=== PATIENT | female | born 1995 | race Caucasian/White ===

== ENCOUNTER → 2018-06-08 | Outpatient (CLI) | payer SELFPAY ==
[~2018-06-08] MED LIST: DIPH-911 PO; DIPH0.5D12 IM; FLU60SYR36 IM; LABE200T35 PO
[2018-06-08 14:41] LABS: PLATELET COUNT, AUTOMATED 227 K/uL (150-450)
== END ==
LOC: LAB 13:21
PROVIDERS: ATTEND Student in an Organized Health Care Education/Training Program
DX: Z34.92 Encounter for supervision of normal pregnancy, unspecified, second trimester (principal)
CPT/HCPCS: 36415; 82950; 85025

== ENCOUNTER → 2018-07-05 | Outpatient (CLI) | payer MEDICAID ==
--- NOTE | 2018-07-05 10:40 | RADIOLOGY IMAGING REPORT ---
FACILITY: [facility] [place] PATIENT NAME: Michelle Angulo : 1995 MR: [id number] V: [id number] EXAM DATE: ORDERING PHYSICIAN: CECY WALKER TECHNOLOGIST: [place] [facility] [place] nAgulo : 1995 Visit/Account:[id number] Date of Sevice: 07/05/2018 [facility] OB LIMITED HISTORY: Hypertension, growth check COMPARISON: None. TECHNIQUE: Transabdominal imaging was performed for assessment of the fetus and maternal pelvic s tructures. Transvaginal imaging was not performed. FINDINGS: Intrauterine gestations: One. presentation: Cephalic. heart rate: 152 bpm. Amniotic fluid volume: Normal; EDWIGE 18.74 cm; MVP 5.47 cm. Placenta: Posterior. Uterus: Gravid, otherwise grossly unremarkable where visualized. Maternal adnexa/ovaries: Grossly unremarkable, ovaries not visualized. Cervix: Not evaluated. Gestational Parameters: BPD: 8.39 cm, 77th percentile HC: 31.13 cm, 73rd percentile AC: 28.21 cm, 48th percentile FL: 6.22 cm, 29th percentile Average ultrasound age (AUA): 33 weeks/ three days Estimated age based on LMP: 32 weeks/ four days Estimated weight (EFW): 2015 grams +/- 294 grams Anatomic Survey: A formal anatomic survey was not performed. IMPRESSION: Single viable fetus in cephalic presentation with an estimated gestational age of 33 weeks and three days by measurements. Estimated gestational age by last menstrual period is 32 weeks and four days. Estimated weight is 2015 g Report Dictated By: Beth Reed MD at 07/05/2018 10:32 AM Report E-Signed By: Beth Reed MD at 07/05/2018 10:36 AM WSN:MEAGAN
== END ==
LOC: RAD 08:54
PROVIDERS: ATTEND Student in an Organized Health Care Education/Training Program
DX: O10.92 Unspecified pre-existing hypertension complicating childbirth (principal); Z3A.33 33 weeks gestation of pregnancy

== ENCOUNTER → 2018-07-08 | Outpatient (CLI) | payer MEDICAID ==
[~2018-07-08] VITALS: Ht 165.1 cm; Wt 99.3 kg
[~2018-07-08] MED LIST changes: +ASPI-1471 PO
[2018-07-08 11:11] VITALS: Ht 165.1 cm; Wt 99.3 kg
== END ==
LOC: OB 10:00 → L&D 10:00 → UNDOADMOB 10:00 → UNDODISOB 14:51 → EDSTATUS 07-09 12:43
PROVIDERS: ATTEND Student in an Organized Health Care Education/Training Program
DX: O26.893 Other specified pregnancy related conditions, third trimester (principal); Z3A.32 32 weeks gestation of pregnancy
CPT/HCPCS: 59025; G0378; G0379

== ENCOUNTER → 2018-07-15 | Outpatient (CLI) | payer MEDICAID ==
[2018-07-08 11:11] VITALS: BMI 36.4
[~2018-07-15] MED LIST changes: +NITR-105 PO
== END ==
LOC: LAB 09:54
PROVIDERS: ATTEND Student in an Organized Health Care Education/Training Program
DX: O26.893 Other specified pregnancy related conditions, third trimester (principal)
CPT/HCPCS: 87088

== ENCOUNTER → 2018-07-24 | Outpatient (CLI) | payer MEDICAID ==
[2018-07-08 11:11] VITALS: Wt 100.7 kg
[~2018-07-24] MED LIST changes: +ACET-1966 PO
[2018-07-24 11:40] VITALS: BP 134/97
[2018-07-24 11:40] LABS: PLATELET COUNT, AUTOMATED 241 K/uL (150-450)
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
== END ==
LOC: ER 10:55 → UNDOADMIN 11:03 → L&D 11:03 → OB 11:03 → UNDODISIN 14:00 → EDSTATUS 14:21
PROVIDERS: ATTEND Obstetrics & Gynecology
DX: O26.893 Other specified pregnancy related conditions, third trimester (principal); R03.0 Elevated blood-pressure reading, without diagnosis of hypertension; Z3A.35 35 weeks gestation of pregnancy
CPT/HCPCS: 36415; 82040; 82247; 82310; 82374; 82435; 82565; 82570; 82947; 83615; 84075; 84132; 84155; 84156; 84295; 84450; 84460; 84520; 84550; 85025

== ENCOUNTER → 2018-07-29 | Outpatient (CLI) | payer MEDICAID ==
[2018-07-08 11:11] VITALS: BMI 36.4
[~2018-07-29] MED LIST changes: +ATEN-65 PO; +BET6I IM ONLY; +CITA-155 PO; +CITA-157 PO; +IBUP800T37 PO; +LOR5/325 PO
== END ==
LOC: LAB 09:47
PROVIDERS: ATTEND Student in an Organized Health Care Education/Training Program
DX: O10.913 Unspecified pre-existing hypertension complicating pregnancy, third trimester (principal)
CPT/HCPCS: 36415; 82040; 82247; 82310; 82374; 82435; 82565; 82947; 84075; 84132; 84155; 84295; 84450; 84460; 84520; 85027

== ENCOUNTER → 2018-07-30 | Outpatient (CLI) | payer MEDICAID ==
[~2018-07-30] VITALS: Ht 165.1 cm; Wt 102.1 kg
[~2018-07-30] MED LIST changes: +ACETA/BUTAL/CAFF 325/50/40 TAB PO ONE; +APAP/HYDROCODONE 325/5 TAB PO ONE; -ATEN-65 PO; -CITA-155 PO; -CITA-157 PO; -IBUP800T37 PO; -LOR5/325 PO; +NIFEdipine 10 MG CAP PO ONE
[2018-07-30 11:08] VITALS: BP 111/76
[2018-07-30 11:11] VITALS: Ht 165.1 cm; Wt 102.1 kg
[2018-07-30 12:17] LABS: PLATELET COUNT, AUTOMATED 224 K/uL (150-450)
== END ==
LOC: L&D 10:55 → OB 10:55 → UNDOADMIN 10:55 → UNDODISIN 17:30 → EDSTATUS 08-02 13:13
PROVIDERS: ATTEND Student in an Organized Health Care Education/Training Program
DX: O26.893 Other specified pregnancy related conditions, third trimester (principal); R03.0 Elevated blood-pressure reading, without diagnosis of hypertension; R51 Headache; Z3A.36 36 weeks gestation of pregnancy
CPT/HCPCS: 36415; 82040; 82247; 82310; 82374; 82435; 82565; 82570; 82947; 84075; 84132; 84155; 84156; 84295; 84450; 84460; 84520; 85025

== ENCOUNTER → 2018-08-02 | Outpatient (CLI) | payer MEDICAID ==
[2018-07-30 11:11] VITALS: BMI 37.4
[~2018-08-02] MED LIST changes: -ACETA/BUTAL/CAFF 325/50/40 TAB PO ONE; -APAP/HYDROCODONE 325/5 TAB PO ONE; -NIFEdipine 10 MG CAP PO ONE
--- NOTE | 2018-08-02 17:15 | RADIOLOGY IMAGING REPORT ---
FACILITY: [facility] PATIENT NAME: Michelle Angulo : 1995 MR: [id number] V: [id number] EXAM DATE: ORDERING PHYSICIAN: CECY WALKER TECHNOLOGIST: [place] [facility] [place]: Michelle Angulo : 1995 Visit/Account:[id number] Date of Sevice: 08/02/2018 [facility] [place] LIIMITED HISTORY: Chronic hypertension affecting , evaluate for growth COMPARISON: July 05, 2018 TECHNIQUE: Transabdominal imaging was performed for assessment of the fetus and maternal pelvic s tructures. Transvaginal imaging was not performed. FINDINGS: Intrauterine gestations: One. presentation: Cephalic. heart rate: 163 bpm. Amniotic fluid volume: Normal; EDWIGE 18.23 cm; MVP 4.97 cm. Placenta: Posterior. Uterus: Gravid, otherwise grossly unremarkable where visualized. Maternal adnexa/ovaries: Not evaluated. Cervix: Not evaluated. Gestational Parameters: BPD: 9.14 cm, 76th percentile HC: 34.33 cm, 89th percentile AC: 31.79 cm, 37th percentile FL: 7.03 cm, 34th percentile Average ultrasound age (AUA): 37 weeks/ two days Estimated age based on LMP: 36 weeks/ four days Estimated weight (EFW): 2918 grams +/- 426 grams, 48th percentile Anatomic Survey: Anatomic survey was not performed IMPRESSION: Single viable fetus in cephalic presentation with an estimated gestational age by measurements of 37 weeks and two days. Estimated gestational age by LMP is 36 weeks and four days. Estimated weight 2918 g, 48th percentile Report Dictated By: Beth Reed MD at 08/02/2018 5:00 PM Report E-Signed By: Beth Reed MD at 08/02/2018 5:11 PM RAMESHN:MEAGAN
== END ==
LOC: RAD 09:12
PROVIDERS: ATTEND Student in an Organized Health Care Education/Training Program
DX: O10.919 Unspecified pre-existing hypertension complicating pregnancy, unspecified trimester (principal)

== ENCOUNTER 2018-08-10 17:37 | Inpatient (IN) | payer MEDICAID ==
[~2018-08-10] VITALS: Ht 165.1 cm; Wt 103.9 kg
[2018-08-10] MEDS ORDERED: FAMOTIDINE(*) 20MG/50ML PREMIX 50 ML IVPB PRN (17:46)
[2018-08-10] MEDS: DLR(*) 1000 ML BAG 1,000 ML IV SCH (17:46)
[2018-08-10 17:50] VITALS: BP 127/87; Ht 165.1 cm; Wt 103.9 kg
[2018-08-10] MEDS ORDERED: LIDOCAINE 1% LOCAL 300 MG/30ML INJ PRN (17:50)
[2018-08-10] MEDS ORDERED: FLUSH 10 ML SYR IVP PRN (17:50)
[2018-08-10] MEDS ORDERED: DINOPROSTONE 10 MG INSERT PV ONE (17:50)
[2018-08-10] MEDS ORDERED: LIDOCAINE/SOD BICARB 8.4% SYR SC PRN (17:50)
[2018-08-10 18:10] LABS: PLATELET COUNT, AUTOMATED 259 K/uL (150-450)
[2018-08-10] MEDS ORDERED: ONDANSETRON 4 MG/2 ML VIAL IVP PRN (18:40)
[2018-08-10] MEDS ORDERED: ACETAMINOPHEN 325 MG TAB PO PRN (18:40)
[2018-08-10] MEDS ORDERED: ceFAZolin(*) 2GM/D5W 50ML 50 ML IVPB PRN (18:48)
[2018-08-10] MEDS ORDERED: OXYTOCIN 30 UNIT/D5LR 500 ML 500 ML ONE (19:20)
[2018-08-10] MEDS: FAMOTIDINE 20 MG TAB PO PRN (19:50)
[2018-08-10] MEDS: LR(*) 1000 ML BAG 1,000 ML IV PRN (19:50)
[2018-08-10] MEDS: DOXYLAMINE SUCCINATE 25 MG TAB PO SCH (19:51)
[2018-08-10] MEDS ORDERED: OXYTOCIN 30 UNIT/D5LR 500 ML 500 ML IV PRN (19:54)
[2018-08-10] MEDS: LABETALOL HCL 100 MG TAB PO SCH (20:47)
[2018-08-10] MEDS: ZOLPIDEM TARTRATE 5 MG TAB PO PRN ×2 (21:03→23:28)
[2018-08-11] MEDS: DLR(*) 1000 ML BAG 1,000 ML IV SCH (01:46)
[2018-08-11] MEDS ORDERED: PENICILLIN G 5 MILLUN/100 ML 100 ML ONE ×2 (01:56→02:06)
[2018-08-11] MEDS ORDERED: PENICILLIN G 5 MILLUN/100 ML 100 ML IVPB ONE ×2 (02:00)
[2018-08-11] MEDS: fentaNYL CITR 100 MCG/2 ML AMP IVP PRN ×3 (02:02→22:37)
[2018-08-11] MEDS ORDERED: BUPIVACAINE 0.5% INJ 30ML VIAL EPI PRN (02:25)
[2018-08-11] MEDS ORDERED: FENTANYL/ROPIVACAINE 100 ML BAG EPI PRN (02:25)
[2018-08-11] MEDS ORDERED: fentaNYL CITR 100 MCG/2 ML AMP IT PRN (02:25)
[2018-08-11] MEDS ORDERED: BUPIVACAINE 0.25% MPF INJ EPI PRN (02:25)
[2018-08-11] MEDS ORDERED: LIDO/EPI 2% MPF 1:200,000 20ML EPI PRN (02:25)
[2018-08-11] MEDS ORDERED: EPIDURAL KEYS XX PRN (02:25)
[2018-08-11] MEDS ORDERED: LIDOCAINE/PF 2% 200MG/10ML AMP 200 MG/10 ML AMPUL EPI PRN (02:25)
[2018-08-11] MEDS ORDERED: DLR(*) 1000 ML BAG 1,000 ML IV PRN (03:30)
[2018-08-11] MEDS ORDERED: PENICILLIN G 2.5 MILLUN/100 ML 100 ML IVPB SCH ×3 (04:00→20:00)
[2018-08-11] MEDS: LR(*) 1000 ML BAG 1,000 ML IV PRN ×2 (05:28→12:29)
--- NOTE | 2018-08-11 06:02 | Anesthesia OB Pre-Anes Eval ---
History of Present Illness Anesthesia Start Date: Aug 11, 2018 Anesthesia Start Time: 04:50 EDC: Aug 26, 2018 : 1 Para: 0 Vital Signs: Vital Signs Date Time Temp Pulse Resp B/P (MAP) Pulse Ox O2 Delivery O2 Flow Rate FiO2 08/10/18 17:50 96.6 106 18 127/87 (100) Room Air Pain Ratin Heart Tones: WNL Result Diagram: 08/10/18 1759 08/10/18 0000 Height (Inches): 65.00 Weight (Pounds): 229 BMI (kg/m2): 37 Past Medical History Medical History: hypertension (Chronic, on medication before ) Attended Childbirth Classes?: No Hx Anesthesia Reactions: No Hx Family Anesthesia Reaction: No Current Medications: pain medication (Fentenyl 200 mg IV) Home Meds Active Scripts Labetalol Hcl (LABETALOL HCL) 200 Mg Tablet, 200 MG PO BID, #60 TAB 2 Refills Prov:CECY WALKER DO 06/08/18 Reported Medications Acetaminophen (TYLENOL) 325 Mg Tablet, 650 MG PO Q4-6H PRN for HEADACHE, TAB 07/24/18 Diphenhydramine Hcl (UNISOM) Unknown Strength Capsule, PO QHS, CAPSULE 06/08/18 Discontinued Reported Medications Aspirin (ASPIR 81) 81 Mg Tablet.dr, 81 MG PO QDAY, TAB 07/08/18 Allergies: Coded Allergies: cephalexin (Verified Allergy, Unknown, 06/08/18) Anesthesia OB ROS Neurological: No migraines/headaches, No seizures, No neuropathy ENT: Denies Tooth caps, Denies Loose teeth, Denies Chipped teeth, Denies Dentures, Denies Bridges, Denies Retainers, Denies Veneers, Denies Implants, Denies Tongue ring Pulmonary: No asthma, No smoker (pks/day/yrs) Airway Class: ll Cardiovascular ROS: No edema, No arrhythmia; other (History of chronic hypertension) GI ROS: clear liquids Last Solids Date: Aug 10, 2018 Last Solids Time: 17:00 ROS: No Herpes, No STD(s), No Liver Disease, No Renal Disease Endocrine ROS: No diabetes, No gestational diabetes, No thyroid disorder Musculoskeletal ROS: No low back pain, No low back injury, No scoliosis ASA Classification: 2 Assessment and Plan Anesthesia Plan: CSE Assessment Past Medical, Surgical, Family and Obstetric Histories reviewed. Please see [facility] chart. Epidural anesthesia risks, complications and benefits explained to patient's satisfaction for labor and vaginal delivery and/or section. General anesthesia risks and benefits explained to patient's satisfaction. Questions invited, none asked. REBEKAH STEVENSON CRNA Aug 11, 2018 06:02
--- NOTE | 2018-08-11 06:03 | Procedure Note ---
Anesthetic Placement Note Anesthesia Plan: CSE Permit for Anesthesia Signed: Yes Anesthesia Technique: Patient Sitting Anesthesia Prep: Chlorhexidine Interspace: L 3-4 Local Anesthetic: 1% Lidocaine, 25 Gauge Needle Amount Local - cc's: 3 Anesthesia Needle: 17g Touhy/Schliff Anesthesia Attempts: 1 Loss of Resistance: Air Depth of ADY (cm): 5 Epidural Needle Placement: No CSF, No Blood, No Parasthesia Intrathecal Needle: 27 Gauge Pencan Cerebral Spinal Fluid: Yes, Clear Catheter Insertion (cm): 8 Catheter Type: Jacome - Spring Wound Epidural Dressing: Tegaderm, Tape, Adhesive [place] Anesthesia Tray: Lot Number ([id number]), Expiration Date (2019-06-25), Reference Number ([id number]) Anesthesia Medications: Intrathecal Dose: mcg Fentanyl (15), mg Marcaine MPF (1.75), Time (0515) Epidural Test Dose: 1.5 Lido/Epi (1:200,000), Dose - mL (3), Time (0537), Negative Epidural Loading Dose: 0.2% Ropivicaine, With Fentanyl 2mcg/ml, Dose - ml (5), Time (0537) Epidural Infusion: 0.2% Ropivicaine, With Fentanyl 2mcg/ml, Start Time: (0537) Epidural Pump Setting: Bolus Dose - mL (5), Lockout - Minutes (20), Maintenance Rate - mL/hr (6), Maximum per Hour - mL (21) Complications: None Comment: Pt. tolerated procedure very well. Difficult to assess when pt. is having contractions. Mild itching noted. REBEKAH STEVENSON CRNA Aug 11, 2018 06:03
--- NOTE | 2018-08-11 06:11 | Anesthesia Progress Note ---
Progress/Maintenance Anesthesia Note Date: Aug 11, 2018 Anesthesia Note Time: 06:00 Pain Intensity: 0 Pump: On Pump Rate (ML/HR): 6 Sensory Level: T-12 Motor Level: Bending Knees-Bilateral Position: Right, Tilt Assessment and Plan Assessment Pt. remains very comfortable, does not feel contractions. Encouraged to sleep. REBEKAH STEVENSON CRNA Aug 11, 2018 06:11
[2018-08-11] MEDS ORDERED: OXYTOCIN 30 UNIT/D5LR 500 ML 500 ML IV PRN ×2 (06:30→12:53)
[2018-08-11] MEDS: DOXYLAMINE SUCCINATE 25 MG TAB PO SCH ×2 (08:06→21:30)
[2018-08-11] MEDS: LABETALOL HCL 100 MG TAB PO SCH (08:38)
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
--- NOTE | 2018-08-11 09:50 | Anesthesia Progress Note ---
Progress/Maintenance Anesthesia Note Date: Aug 11, 2018 Anesthesia Note Time: 09:45 Pain Intensity: 0 Pump: On Pump Rate (ML/HR): 6 Sensory Level: T-12 Motor Level: Bending Knees-Bilateral Dilatation: 4 Position: Right, Tilt Assessment and Plan Assessment Pt. continues to be comfortable, but has now noticed a few contractions. Moving her legs well and able to turn herself in bed. REBEKAH STEVENSON CRNA Aug 11, 2018 09:50
[2018-08-11] MEDS: PENICILLIN G 2.5 MILLUN/100 ML 100 ML IVPB SCH ×3 (10:01→18:10)
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
[2018-08-11] MEDS: FAMOTIDINE 20 MG TAB PO PRN (10:47)
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
--- NOTE | 2018-08-11 14:45 | Anesthesia Progress Note ---
Progress/Maintenance Anesthesia Note Date: Aug 11, 2018 Anesthesia Note Time: 12:30 Pain Intensity: 0 Pump: On Pump Rate (ML/HR): 6 Sensory Level: T-12 Motor Level: Bending Knees-Bilateral Dilatation: 5 Position: Right, Tilt Assessment and Plan Assessment Pt. remains comfortable, no further medication has been given. REBEKAH STEVENSON CRNA Aug 11, 2018 14:45
--- NOTE | 2018-08-11 14:47 | Anesthesia Progress Note ---
Progress/Maintenance Anesthesia Note Date: Aug 11, 2018 Anesthesia Note Time: 14:45 Pain Intensity: 0 Pump: On Pump Rate (ML/HR): 6 Sensory Level: T-12 Motor Level: Bending Knees-Bilateral Dilatation: 8 Position: Right, Tilt Assessment and Plan Assessment Sensory of rt side much lower, turned onto right side after vag exam. Pt. states she has been sleeping soundly and does not notice contractions. Able to move herself up in med easily. REBEKAH STEVENSON CRNA Aug 11, 2018 14:47
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
--- NOTE | 2018-08-11 15:25 | Anesthesia Progress Note ---
Progress/Maintenance Anesthesia Note Date: Aug 11, 2018 Anesthesia Note Time: 15:20 Pain Intensity: 7 Pump: On Pump Rate (ML/HR): 6 Sensory Level: T-12 Motor Level: Bending Knees-Bilateral Dilatation: 9 Position: Right, Tilt Drug Bolus: 0.2% Ropivicaine, Fentanyl 2mcg/ml, Other (Fentenyl 85 mcgs) Assessment and Plan Assessment Feeling more contractions and pressure. Bolus with pump and Fentenyl 85 mcgs manually. REBEKAH STEVENSON CRNA Aug 11, 2018 15:25
--- NOTE | 2018-08-11 15:48 | Anesthesia Progress Note ---
Progress/Maintenance Anesthesia Note Date: Aug 11, 2018 Anesthesia Note Time: 15:45 Pain Intensity: 7 Pump: On Pump Rate (ML/HR): 6 Sensory Level: T-12 Motor Level: Bending Knees-Bilateral Dilatation: 9 Drug Bolus: 0.5% Marcaine (5ml) Assessment and Plan Assessment Pt. feels her comfort level has not improved. Manual bolus with 0.5% Marcaine plain. REBEKAH STEVENSON CRNA Aug 11, 2018 15:48
[2018-08-11] MEDS ORDERED: HYDROCORTISONE 2.5% CR 30GM TB PR PRN (19:05)
[2018-08-11] MEDS ORDERED: BENZOCAINE 20% 60 ML BTL TP PRN (19:05)
[2018-08-11] MEDS ORDERED: LANOLIN OINT 7 GM TUBE TP PRN (19:05)
[2018-08-11] MEDS ORDERED: ACETAMINOPHEN 325 MG TAB PO PRN (19:05)
[2018-08-11] MEDS ORDERED: MAGNESIUM HYDROXIDE* 30ML UDCP PO PRN (19:05)
[2018-08-11] MEDS ORDERED: GLYCERIN/WITCH HAZEL LEAF 1 PK TP PRN (19:05)
--- NOTE | 2018-08-11 19:12 | Anesthesia Progress Note ---
Progress/Maintenance Anesthesia Note Date: Aug 11, 2018 Anesthesia Note Time: 19:00 Pain Intensity: 0 Pump: Off Sensory Level: T-12 Motor Level: Bending Knees-Bilateral Dilatation: 10 Position: Semi-Fowlers Drug Bolus: 0.5% Marcaine (4 ml) Assessment and Plan Assessment Manual bolus given as started. Pt. was able to push well and had excellent tolerance of deliver and repair work. Patient instructed the first ambulation is to be with help of nursing staff. Instructed to preform deep knee bends at bedside before walking. Empty syringe attached to epidural catheter and RN agrees to remove with ambulation. Anesthesia Stop Day: Aug 11, 2018 Anesthesia Stop Time: 19:00 REBEKAH STEVENSON CRNA Aug 11, 2018 19:12
--- NOTE | 2018-08-11 19:15 | OB Delivery Note ---
Delivery Note Vaginal Delivery Type: Spont. Vaginal Delivery Delivery Date: Aug 11, 2018 Delivery Time: 18:29 Estimated Gestational Age(wks): 37.6 Length of Labor Stage I (hrs): 8 Length of Labor Stage II (hrs): 1.5 Labor Stage III (minutes): 5 Delivery Anesthesia: Epidural Infant Sex: Female Weight (gms): 2910 (6#10oz) Callahan Apgars: 1 Minute (8), 5 Minute (9) Repair Needed: Episiotomy-Midline, Other (Right Side wall) Estimated Blood Loss: 500 Delivery Complications: Hemorrhage (due to laceration), Laceration CECY WALKER DO Aug 11, 2018 19:15
[2018-08-11] MEDS ORDERED: MISOPROSTOL 200 MCG TAB ONE (19:32)
[2018-08-11] MEDS ORDERED: METHYLERGONOVINE MAL 0.2MG/ML ONE (20:21)
[2018-08-11] MEDS: APAP/HYDROCODONE 325/5 TAB PO PRN (20:22)
[2018-08-11] MEDS: DOCUSATE CALCIUM 240 MG CAP PO SCH (21:00)
[2018-08-11] MEDS ORDERED: PROMETHAZINE 25 MG/ML 1 ML AMP IVP PRN (21:45)
--- NOTE | 2018-08-11 22:11 | DELIVERY NOTE ---
DELIVERY DATE: August 11, 2018 SURGEON: Lars Harman DO ANESTHESIA: Epidural. PREOPERATIVE DIAGNOSES 1. A 23-year-old, 1, para zero, at 37-6/7 weeks' gestation. 2. Moderately well-controlled chronic hypertension on labetalol. 3. Induction of labor. POSTOPERATIVE DIAGNOSES 1. A 23-year-old, 1, para zero, at 37-6/7 weeks' gestation. 2. Moderately well-controlled chronic hypertension on labetalol. 3. Induction of labor. 4. Delivered. PROCEDURES 1. Spontaneous vaginal delivery. 2. Repair of right sidewall laceration and a second-degree midline episiotomy. FINDINGS Live-born female at 1829 with Apgars of 8 and 9, weighing 2910 g, 6 pounds 7 ounces, three-vessel cord, intact placenta over a second-degree midline episiotomy with right sidewall laceration. PATHOLOGY None. ESTIMATED BLOOD LOSS 700 mL secondary to sidewall laceration. COMPLICATIONS Extensive right sidewall laceration and left compound arm presentation. CONDITION Patients stable times two. Mother and to remain in the LDRP. COUNTS Correct for all needles, laps, sponges, and instruments. INDICATIONS AND CONSENT/LABOR SUMMARY This 23-year-old 1, para zero, at 37-6/7 weeks' gestation presented for induction of labor secondary to chronic hypertension on blood pressure medications. Patient was initially 1 cm dilated. She received Cervidil overnight. She progressed with Cervidil to 3 to 4 cm. She did request an epidural for pain control. Continued to progress slowly. She was started on oxytocin and did undergo artificial rupture of amniotic membranes with clear amniotic fluid. Patient continued on oxytocin, making slow but adequate progress, and eventually got to complete. After approximately one and a half to two hours of pushing, the delivery team was called and assembled. DELIVERY SUMMARY Patient was placed in the dorsal lithotomy position, prepped and draped in the usual sterile manner. Upon maternal pushing, the 's head delivered in a controlled manner, followed by the anterior shoulder with gentle downward motion and the posterior shoulder with gentle upward motion. The remainder of the 's body delivered spontaneously. The mouth and nose were bulb suctioned. A vigorous female infant was then placed on maternal abdomen. After approximately two minutes post delivery, the cord was clamped times two and cut. At this point, cord blood gases were obtained. The placenta delivered spontaneously with gentle cord traction. Once the placenta delivered, oxytocin was infused to help with uterine tone. The uterus was massaged and deemed firm. Upon inspection of the perineum, vagina, cervix, and labia, it was noted in addition to the episiotomy that was cut there was an extensive right sidewall laceration. Because of how posterior the extension was, a laparotomy sponge was placed in the vagina to push the cervix further distal to expose the apex of the laceration. The apex was visualized. A 3-0 Vicryl was then placed just distal to the apex. The 3-0 Vicryl was then used to close the sidewall laceration in a running locked manner until the episiotomy. Once at the episiotomy, the episiotomy was closed in the usual manner with a 3-0 Vicryl. With the laceration repaired, it was noted to be hemostatic. The patient had uterus massaged and deemed firm. At this point, the patient was cleaned. The labor bed was reassembled, and the mother and were allowed to continue to tristan. CORA
[2018-08-11 22:32] VITALS: BP 142/87
[2018-08-12] MEDS: fentaNYL CITR 100 MCG/2 ML AMP IVP PRN (00:03)
[2018-08-12] MEDS ORDERED: LR(*) 1000 ML BAG 2,000 ML ONE (01:30)
[2018-08-12 03:40] VITALS: BP 129/81
[2018-08-12] MEDS: APAP/HYDROCODONE 325/5 TAB PO PRN ×3 (04:22→21:34)
[2018-08-12] MEDS: IBUPROFEN 800 MG TAB PO SCH ×3 (06:29→23:27)
--- NOTE | 2018-08-12 06:58 | Anesthesia Post Eval Note ---
Anesthesia Post Eval Note Vital Signs Date Time Temp Pulse Resp B/P (MAP) Pulse Ox O2 Delivery O2 Flow Rate FiO2 08/12/18 03:40 97.8 91 129/81 (97) 91 Room Air 08/10/18 17:50 18 Pt able to participate in Eval: Yes Cardiovascular Status: Satisfactory Respiratory Status: Satisfactory Pain Managment: Satisfactory PO Nausea/Vomiting: Satisfactory Temperature Management: Satisfactory Mental Status: Satisfactory, Alert, Oriented X3 Post-Op Hydration Status: Satisfactory, Tolerating PO Well, Voiding w/o Difficulty Anesthesia Type: CSE Anesthesia Tolerance: Tolerated procedure well without apparent anesthetic complications. LP site clear, no redness or edema. Denies headache or any residual paresthesia. Vital Signs Stable, Patient comfortable and condition stable. REBEKAH STEVENSON CRNA Aug 12, 2018 06:58
[2018-08-12 08:00] VITALS: BP 134/78
[2018-08-12] MEDS: DOXYLAMINE SUCCINATE 25 MG TAB PO SCH (08:00)
[2018-08-12] MEDS: DOCUSATE CALCIUM 240 MG CAP PO SCH ×2 (10:00→21:34)
--- NOTE | 2018-08-12 12:57 | OB/GYN Progress Note ---
OB Subjective Progress Notes Subjective Doing good PPD#2. Some tenderness where belly has been pushed on for fundal massage. Turner cath still being used. No headaches or visual changes. Lochia appropriate GI: NEG Nausea, NEG Vomiting, NEG Flatus, NEG Bowel Movement Pain: Mild, Comfortable, Tolerating PO Pain Meds Neurological: No Headache, No Other Eyes: No Visual Disturbances OB Objective Physical Exam Vital Signs Date Time Temp Pulse Resp B/P (MAP) Pulse Ox O2 Delivery O2 Flow Rate FiO2 08/12/18 08:00 98.4 94 18 134/78 (96) 94 Room Air Intake and Output 08/12/18 07:00 Intake Total 2650 ml Output Total 1875 ml Balance 775 ml IV Total 2650 ml Output Urine Total 1875 ml General Appearance: Alert/Awake/No Acute Distress Neurological: No Gross deficits Eyes: Normal Extraocular Movement & Vison ENT: Normal Cardiovascular: Normal Rhythm & Peripheral Pulses Respiratory: No Respiratory Distress, Clear to Auscultation Abdomen: Soft, Non-Tender, Non-Distended, Fundus Firm Extremities: No Cyanosis,Clubbing or Edema Integumentary: Skin Intact without Lesions or Rash Psychological: Appropriate Mood & Affect Result Diagram: 08/12/18 0555 08/10/18 0000 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 Pt desires to start back on prepregnancy medications. Will start her on Atenolol 50 mg PO daily. D/C turner. (3) Encounter for induction of labor Status: Acute CECY WALKER DO Aug 12, 2018 12:57
[2018-08-12 13:15] VITALS: BP 142/91
[2018-08-12] MEDS ORDERED: ATENOLOL 25 MG TAB PO SCH (14:00)
[2018-08-12 15:20] VITALS: BP 124/78
[2018-08-12] MEDS ORDERED: DOXYLAMINE SUCCINATE 25 MG TAB PO PRN (17:00)
[2018-08-12] MEDS ORDERED: INFLUENZA VIRUS VAC 0.5ML SYR IM ONLY ONE (19:05)
[2018-08-12] MEDS ORDERED: DIPHTH/TETANUS/ACEL. PERTUSSIS IM ONLY ONE (19:05)
[2018-08-12] MEDS ORDERED: MEASLES,MUMP,RUBELLA VAC 0.5ML SUBQ ONE (19:05)
[2018-08-12] MEDS ORDERED: IBUPROFEN 800 MG TAB PO SCH (20:00)
[2018-08-12 20:10] VITALS: BP 145/95
[2018-08-12 23:27] VITALS: BP 128/81
[2018-08-13] MEDS: APAP/HYDROCODONE 325/5 TAB PO PRN ×3 (01:03→12:30)
[2018-08-13 03:25] VITALS: BP 145/79
--- NOTE | 2018-08-13 08:06 | OB/GYN Progress Note ---
OB Subjective Progress Notes Subjective Doing good PPD # 2. Reports voiding and having a BM with out any difficulty. Pain controlled on po pain medications. Tolerating regular diet. Ambulatory. Lochia appropriate. GI: NEG Nausea, NEG Vomiting, NEG Flatus, NEG Bowel Movement : Voiding Well, Vaginal Bleeding, Moderate Pain: Mild, Comfortable, Tolerating PO Pain Meds Neurological: No Headache, No Other Eyes: No Visual Disturbances OB Objective Physical Exam Vital Signs Date Time Temp Pulse Resp B/P (MAP) Pulse Ox O2 Delivery O2 Flow Rate FiO2 08/13/18 03:25 97.3 93 18 145/79 (101) 94 Room Air Intake and Output 08/13/18 06:59 Intake Total 1062 ml Output Total 1425 ml Balance -363 ml Intake Oral 562 ml IV Total 500 ml Output Urine Total 1425 ml # Voids 1 General Appearance: Alert/Awake/No Acute Distress Neurological: No Gross deficits Eyes: Normal Extraocular Movement & Vison ENT: Normal Cardiovascular: Normal Rhythm & Peripheral Pulses Respiratory: No Respiratory Distress, Clear to Auscultation Abdomen: Soft, Non-Tender, Non-Distended, Fundus Firm Extremities: No Cyanosis,Clubbing or Edema Integumentary: Skin Intact without Lesions or Rash Psychological: Appropriate Mood & Affect Result Diagram: 08/12/18 0555 08/10/18 0000 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 Continue atenolol and po pain medications. (3) Encounter for induction of labor Status: Acute CECY WALKER DO Aug 13, 2018 08:06
[2018-08-13] MEDS ORDERED: ATEN-65 PO (08:09)
[2018-08-13] MEDS ORDERED: IBUP800T37 PO (08:09)
[2018-08-13] MEDS ORDERED: LOR5/325 PO (08:09)
--- NOTE | 2018-08-13 08:16 | OB/GYN Discharge Summary ---
Discharge Summary Reason for Hosp/Final Diag: (1) 37 weeks gestation of Status: Acute (2) Chronic hypertension affecting Status: Chronic Hospital Course & Plan: Pt presented for a scheduled IOL. IOL proceeded with out any difficulty. See delivery note for details of procedure. Pt did have Uterine atony post and required extra oxytocin, Cytotec, Methergine. Silverman catheter was used to ensure adequate urine output. Pt remained in the hospital for 2 days post . Was transitioned to Atenolol for BP control. Pt was meeting post goals and desired to be discharged home. (3) Encounter for induction of labor Status: Acute Lates Vital Signs Vital Signs Date Time Temp Pulse Resp B/P (MAP) Pulse Ox O2 Delivery O2 Flow Rate FiO2 08/13/18 03:25 97.3 93 18 145/79 (101) 94 Room Air Weight (Pounds): 229 Result Diagram: 08/12/18 0555 08/10/18 0000 Condition: Improved Discharge: Home Home Meds Active Scripts Hydrocodone Bit/Acetaminophen (HYDROCODON-ACETAMINOPHEN 5-325) 1 Each Tablet, 1- 2 EACH PO Q4H PRN for PAIN, #20 TAB 0 Refills Prov:CECY WALKER DO 08/13/18 Labetalol Hcl (LABETALOL HCL) 200 Mg Tablet, 200 MG PO BID, #60 TAB 2 Refills Prov:CECY WALKER DO 06/08/18 Reported Medications Acetaminophen (TYLENOL) 325 Mg Tablet, 650 MG PO Q4-6H PRN for HEADACHE, TAB 07/24/18 Diphenhydramine Hcl (UNISOM) Unknown Strength Capsule, PO QHS, CAPSULE 06/08/18 Discontinued Reported Medications Aspirin (ASPIR 81) 81 Mg Tablet., 81 MG PO QDAY, TAB 07/08/18 Follow up with: [facility] [phone], Dr. Walker [phone] Follow up in: 6 wks PP or PO, 2 wks PO Discharge Diet: As Tolerates, Resume Prior Admit Diet Discharge Activity: Pelvic Rest CECY WALKER DO Aug 13, 2018 08:16
[2018-08-13 08:30] VITALS: BP_SYST 141; BP_SYST 153; BP_DIAS 100; BP_DIAS 107
[2018-08-13] MEDS ORDERED: ATENOLOL 25 MG TAB PO SCH (08:35)
[2018-08-13] MEDS: IBUPROFEN 800 MG TAB PO SCH ×2 (08:39→15:00)
[2018-08-13] MEDS: DOCUSATE CALCIUM 240 MG CAP PO SCH (08:39)
[2018-08-14] MEDS ORDERED: ATENOLOL 25 MG TAB PO SCH (09:00)
== END 2018-08-13 17:50 | disposition home or self-care (01) | DRG 807 ==
LOC: OB 17:37
PROVIDERS: ADMIT Student in an Organized Health Care Education/Training Program; ATTEND Student in an Organized Health Care Education/Training Program
PROC: 10E0XZZ Delivery of Products of Conception, External Approach (ICD-10-PCS; principal; 2018-08-10)
PROC: 10907ZC Drainage of Amniotic Fluid, Therapeutic from Products of Conception, Via Natural or Artificial Opening (ICD-10-PCS; 2018-08-10)
PROC: 0W8NXZZ Division of Female Perineum, External Approach (ICD-10-PCS; 2018-08-10)
PROC: 3E0P7VZ Introduction of Hormone into Female Reproductive, Via Natural or Artificial Opening (ICD-10-PCS; 2018-08-10)
PROC: 3E033VJ Introduction of Other Hormone into Peripheral Vein, Percutaneous Approach (ICD-10-PCS; 2018-08-10)
DX: O10.92 Unspecified pre-existing hypertension complicating childbirth (principal); Z37.0 Single live birth; O70.1 Second degree perineal laceration during delivery; O67.8 Other intrapartum hemorrhage; O32.6XX0 Maternal care for compound presentation, not applicable or unspecified; Z91.410 Personal history of adult physical and sexual abuse; Z3A.37 37 weeks gestation of pregnancy
CPT/HCPCS: 36415; 82040; 82247; 82310; 82374; 82435; 82565; 82947; 84075; 84132; 84155; 84295; 84450; 84460; 84520; 85025; 85027; 86703; 86850; 86900; 86901; J2210; J2540; J2550; J2590; J3010; J7120

== ENCOUNTER 2018-09-15 15:32 | Emergency (ER) | payer MEDICAID ==
[2018-08-10 17:50] VITALS: Wt 103.9 kg
[~2018-09-15 15:32] MED LIST changes: +ATEN-65 PO; +CITA-155 PO; +CITA-157 PO; +IBUP800T37 PO; +LOR5/325 PO
[2018-09-15 15:36] VITALS: BP 160/103
--- NOTE | 2018-09-15 15:52 | ER Report ---
History and Physical Time Seen By MD: 15:45 Hx. of Stated Complaint: SI, HI, DEPRESSION HPI/ROS CHIEF COMPLAINT: Suicidal homicidal thoughts HISTORY OF PRESENT ILLNESS: 23-year-old female history of psychiatric disorders comes emergency Department today via the clinic she has a 30 day old child who she states is she is suicidal ideation for herself and homicidal ideations on the child and says she wants to kill her child. . Child is currently in care and custody of one of her primary school teacher librarian's CPS will be contacted at this point as well. Patient states she's had suicidal thoughts in the past. Has had thoughts about killing herself but now wants to kill her child. Patient admits to these thoughts on a regular basis. Patient is concerned about her own safety obviously and also safety of her child. REVIEW OF SYSTEMS: Respiratory: No cough, no dyspnea. Cardiovascular: No chest pain, no palpitations. Gastrointestinal: No vomiting, no abdominal pain. Musculoskeletal: No back pain. Remainder of the 14 system rev: Yes Allergies: Coded Allergies: cephalexin (Verified Allergy, Unknown, 06/08/18) Home Meds Active Scripts Atenolol (ATENOLOL) 25 Mg Tablet, 25 MG PO QDAY, #30 TAB 12 Refills Prov:CECY WALKER DO 08/13/18 Reported Medications Citalopram Hydrobromide (CELEXA) 40 Mg Tablet, 40 MG PO QDAY 09/15/18 Discontinued Reported Medications Citalopram Hydrobromide (CELEXA) 10 Mg Tablet, 20 MG PO QDAY, #10 TAB 08/26/18 Discontinued Scripts Citalopram Hydrobromide (CELEXA) 40 Mg Tablet, 40 MG PO QDAY for 30 Days, #30 TAB 3 Refills Prov:CECY WALKER DO 09/06/18 Reviewed Nurses Notes: Yes Old Medical Records Reviewed: Yes Hx Smoking: No Smoking Status: Never Smoker Exposure to Second Hand Smoke?: No Hx Substance Use Disorder: No Hx Alcohol Use: No Constitutional Physical Exam General Appearance: [The patient is alert, has no immediate need for airway protection and no current signs of toxicity.] [ ] Eyes: Pupils equal and round no injection. Respiratory: Chest is non tender, lungs are clear to auscultation. Cardiac: regular rate and rhythm [ ] Gastrointestinal: Abdomen is soft and non tender, no masses, bowel sounds normal. Musculoskeletal: Neck: Neck is supple and non tender. Extremities have full range of motion and are non tender. Skin: No rashes or lesions. Behavioral examination patient with suicidal homicidal ideation with plan intent for herself and for her child DIFFERENTIAL DIAGNOSIS: After history and physical exam differential diagnosis was considered for suicidal thoughts and ideation with plan homicidal ideation of her child Medical Decision Making Data Points Laboratory Hematology Test 09/15/18 15:53 Red Blood Count 4.42 M/uL (4.17-5.56) Mean Corpuscular Volume 88.0 fL (80.0-96.0) Mean Corpuscular Hemoglobin 28.6 pg (26.0-33.0) Mean Corpuscular Hemoglobin Concent 32.5 g/dL (32.0-36.0) Red Cell Distribution Width 14.3 % (11.5-14.5) Mean Platelet Volume 8.4 fL (7.2-11.1) Neutrophils (%) (Auto) 66.7 % (39.4-72.5) Lymphocytes (%) (Auto) 25.1 % (17.6-49.6) Monocytes (%) (Auto) 7.1 % (4.1-12.4) Eosinophils (%) (Auto) 0.6 % (0.4-6.7) Basophils (%) (Auto) 0.5 % (0.3-1.4) Nucleated RBC Relative Count (auto) 0.0 /100WBC Neutrophils # (Auto) 5.6 K/uL (2.0-7.4) Lymphocytes # (Auto) 2.1 K/uL (1.3-3.6) Monocytes # (Auto) 0.6 K/uL (0.3-1.0) Eosinophils # (Auto) 0.1 K/uL (0.0-0.5) Basophils # (Auto) 0.0 K/uL (0.0-0.1) Nucleated RBC Absolute Count (auto) 0.00 K/uL Urine Color Carline Urine Clarity Turbid Urine pH 5.0 pH (4.8-9.5) Urine Specific [place] 1.024 Urine Protein 100 mg/dL (NEGATIVE) Urine Glucose (UA) Negative mg/dL (NEGATIVE) Urine Ketones Negative mg/dL (NEGATIVE) Urine Blood Moderate (NEGATIVE) Urine Nitrite Negative (NEGATIVE) Urine Bilirubin Negative (NEGATIVE) Urine Urobilinogen Negative mg/dL (0.2-1.9) Urine Leukocyte Esterase Moderate (NEGATIVE) Urine RBC 30 /HPF (0-2/HPF) Urine WBC 276 /HPF (0-5/HPF) Urine WBC Clumps Many /HPF Urine Squamous Epithelial Cells Many /LPF (</=FEW) Urine Bacteria Few /HPF (NONE-FEW) Urine Mucus Few /HPF (NONE-FEW) Urine HCG, Qualitative Negative (NEGATIVE) Sodium Level 139 mmol/L (137-145) Potassium Level 3.9 mmol/L (3.5-5.0) Chloride Level 106 mmol/L (98-107) Carbon Dioxide Level 25 mmol/L (22-31) Blood Urea Nitrogen 9 mg/dl (7-18) Creatinine 0.80 mg/dl (0.52-1.04) Glomerular Filtration Rate Calc > 60.0 Random Glucose 98 mg/dl (75-110) Calcium Level 9.7 mg/dl (8.4-10.2) Magnesium Level 1.9 mg/dl (1.7-2.2) Total Bilirubin 0.4 mg/dl (0.2-1.3) Aspartate Amino Transf (AST/SGOT) 25 U/L (0-35) Alanine Aminotransferase (ALT/SGPT) 40 U/L (0-56) Alkaline Phosphatase 71 U/L (0-126) Total Protein 7.7 g/dl (6.3-8.2) Albumin 4.8 g/dl (3.5-5.0) Thyroid Stimulating Hormone (TSH) 0.94 uIU/ml (0.46-4.68) Salicylates Level < 10 mg/L Salicylate Last Dose Date unk Urine Opiates Screen Negative Acetaminophen Level < 10 ug/ml Urine Barbiturates Screen Negative Ur Tricyclic Antidepressants Screen Negative Urine Phencyclidine Screen Negative Urine Amphetamines Screen Negative Urine Benzodiazepines Screen Negative Urine Cocaine Screen Negative Urine Cannabinoids Screen Negative Serum Alcohol < 10 mg/dl Chemistry Test 09/15/18 15:53 White Blood Count 8.4 k/uL (4.5-11.0) Red Blood Count 4.42 M/uL (4.17-5.56) Hemoglobin 12.6 g/dL (12.0-16.0) Hematocrit 38.9 % (34.0-47.0) Mean Corpuscular Volume 88.0 fL (80.0-96.0) Mean Corpuscular Hemoglobin 28.6 pg (26.0-33.0) Mean Corpuscular Hemoglobin Concent 32.5 g/dL (32.0-36.0) Red Cell Distribution Width 14.3 % (11.5-14.5) Platelet Count 273 K/uL (150-450) Mean Platelet Volume 8.4 fL (7.2-11.1) Neutrophils (%) (Auto) 66.7 % (39.4-72.5) Lymphocytes (%) (Auto) 25.1 % (17.6-49.6) Monocytes (%) (Auto) 7.1 % (4.1-12.4) Eosinophils (%) (Auto) 0.6 % (0.4-6.7) Basophils (%) (Auto) 0.5 % (0.3-1.4) Nucleated RBC Relative Count (auto) 0.0 /100WBC Neutrophils # (Auto) 5.6 K/uL (2.0-7.4) Lymphocytes # (Auto) 2.1 K/uL (1.3-3.6) Monocytes # (Auto) 0.6 K/uL (0.3-1.0) Eosinophils # (Auto) 0.1 K/uL (0.0-0.5) Basophils # (Auto) 0.0 K/uL (0.0-0.1) Nucleated RBC Absolute Count (auto) 0.00 K/uL Urine Color Carline Urine Clarity Turbid Urine pH 5.0 pH (4.8-9.5) Urine Specific [place] 1.024 Urine Protein 100 mg/dL (NEGATIVE) Urine Glucose (UA) Negative mg/dL (NEGATIVE) Urine Ketones Negative mg/dL (NEGATIVE) Urine Blood Moderate (NEGATIVE) Urine Nitrite Negative (NEGATIVE) Urine Bilirubin Negative (NEGATIVE) Urine Urobilinogen Negative mg/dL (0.2-1.9) Urine Leukocyte Esterase Moderate (NEGATIVE) Urine RBC 30 /HPF (0-2/HPF) Urine WBC 276 /HPF (0-5/HPF) Urine WBC Clumps Many /HPF Urine Squamous Epithelial Cells Many /LPF (</=FEW) Urine Bacteria Few /HPF (NONE-FEW) Urine Mucus Few /HPF (NONE-FEW) Urine HCG, Qualitative Negative (NEGATIVE) Glomerular Filtration Rate Calc > 60.0 Calcium Level 9.7 mg/dl (8.4-10.2) Magnesium Level 1.9 mg/dl (1.7-2.2) Total Bilirubin 0.4 mg/dl (0.2-1.3) Aspartate Amino Transf (AST/SGOT) 25 U/L (0-35) Alanine Aminotransferase (ALT/SGPT) 40 U/L (0-56) Alkaline Phosphatase 71 U/L (0-126) Total Protein 7.7 g/dl (6.3-8.2) Albumin 4.8 g/dl (3.5-5.0) Thyroid Stimulating Hormone (TSH) 0.94 uIU/ml (0.46-4.68) Salicylates Level < 10 mg/L Salicylate Last Dose Date unk Urine Opiates Screen Negative Acetaminophen Level < 10 ug/ml Urine Barbiturates Screen Negative Ur Tricyclic Antidepressants Screen Negative Urine Phencyclidine Screen Negative Urine Amphetamines Screen Negative Urine Benzodiazepines Screen Negative Urine Cocaine Screen Negative Urine Cannabinoids Screen Negative Serum Alcohol < 10 mg/dl Toxicology Test 09/15/18 15:53 Salicylates Level < 10 mg/L Salicylate Last Dose Date unk Urine Opiates Screen Negative Acetaminophen Level < 10 ug/ml Urine Barbiturates Screen Negative Ur Tricyclic Antidepressants Screen Negative Urine Phencyclidine Screen Negative Urine Amphetamines Screen Negative Urine Benzodiazepines Screen Negative Urine Cocaine Screen Negative Urine Cannabinoids Screen Negative Serum Alcohol < 10 mg/dl Urinalysis Test 09/15/18 15:53 Urine Color Carline Urine Clarity Turbid Urine pH 5.0 pH (4.8-9.5) Urine Specific [place] 1.024 Urine Protein 100 mg/dL (NEGATIVE) Urine Glucose (UA) Negative mg/dL (NEGATIVE) Urine Ketones Negative mg/dL (NEGATIVE) Urine Blood Moderate (NEGATIVE) Urine Nitrite Negative (NEGATIVE) Urine Bilirubin Negative (NEGATIVE) Urine Urobilinogen Negative mg/dL (0.2-1.9) Urine Leukocyte Esterase Moderate (NEGATIVE) Urine RBC 30 /HPF (0-2/HPF) Urine WBC 276 /HPF (0-5/HPF) Urine WBC Clumps Many /HPF Urine Squamous Epithelial Cells Many /LPF (</=FEW) Urine Bacteria Few /HPF (NONE-FEW) Urine Mucus Few /HPF (NONE-FEW) Urine HCG, Qualitative Negative (NEGATIVE) ED Course/Re-evaluation ED Course Pt title 25 on suicide ideation and homicidal ideqations CPS removed child for protective custody, pt admitted after medical clearance to [facility]. Police at bedside to remove child custody. Decision to Disposition Date: Sep 15, 2018 Decision to Disposition Time: 15:00 Depart Departure Latest Vital Signs Impression: Primary Impression: Homicidal thoughts Additional Impressions: Homicidal ideations Suicidal ideation Condition: Condition Unchanged Disposition: XFER TO [facility] Referrals: CECY WALKER DO (PCP) Problem Qualifiers KRYSTLE SCHREIBER MD Sep 15, 2018 15:51
[2018-09-15 16:04] LABS: PLATELET COUNT, AUTOMATED 273 K/uL (150-450)
[2018-09-15] MEDS ORDERED: IBUPROFEN 800 MG TAB PO ONE (18:45)
[2018-09-15] MEDS ORDERED: CITA-157 PO (19:29)
== END 2018-09-15 18:59 ==
LOC: ER 15:50
DX: R45.850 Homicidal ideations (principal); R45.851 Suicidal ideations
CPT/HCPCS: 80305; 81001; 81025; 83735; 84443; 85025; 99284; G0480; 80320; 80329; 82040; 82247; 82310; 82374; 82435; 82565; 82947; 84075; 84132; 84155; 84295; 84450; 84460; 84520

== ENCOUNTER 2018-09-15 18:41 | Inpatient (IN) | payer MEDICAID ==
[2018-08-10 17:50] VITALS: Ht 165.1 cm; Wt 88.9 kg
[~2018-09-15] VITALS: Ht 165.1 cm; Wt 88.9 kg
[2018-09-15] MEDS ORDERED: MAG HYD/AL HYD/SIMETH 30ML UDC PO PRN (19:15)
[2018-09-15] MEDS ORDERED: ACETAMINOPHEN 325 MG TAB PO PRN (19:15)
[2018-09-15] MEDS ORDERED: CITA-157 PO (19:29)
--- NOTE | 2018-09-15 20:19 | BHS - Psychiatric Evaluation ---
ER - Title 25 MHE Evaluation Title 25 Evaluation Patient Detained By: Physician (Dr. Sebastian Lord) Referral Source: Professional: ER DrHaley and patient's child's manager decision support Date Patient Detained: Sep 15, 2018 Time Patient Detained: 16:27 Date Longterm Expires: Sep 20, 2018 Time Longterm Expires: 16:27 Legal Status: Police Hold: No Legal Status: Residence: [facility] Resident, State Resident Assessment Data Provided By: Patient, Other Source ([facility] Physician) HPI/ROS: Patient was expressing suicidal thoughts to ER physician, Dr. Lord, and given patient is a single parent to a new baby, the physician initiated a prison to have patient evaluated for her safety and her ability to keep the baby safe. Admit due to SI or Attempt: Yes Suicide Plan: Has Plan w/out Access (Does not identify her plan at this time.) Alcohol or Drugs Involved: No Is Patient Info Reliable: Yes Is Collateral Info Reliable: Yes (Physician) Current Home Psych Meds: Vistaril, Trazodone Mental Status Exam General Appearance: Good Eye Contact, Cooperative, Polite Speech: Normal Volume (At times, patient speaks very loudly) Mood: Dysthmic/Depressed Affect: Sad, Anxious, Other (Sometimes smiles when talking about very difficult topics. Smiles as she says, "I had my daughter taken away." Patient seems quite dyregulated.) Thought Process: Loose Associations (Tangential at times.) Thought Content: Suicidal Ideation (Acknowledges that she is thinking about killing herself.) Cognition: Alert & Oriented-Person, Alert & Oriented-Place, Alert & Oriented- Time; No Cjrih-Ryhuwmrn-Lfoutftzy Memory: Immediate, Recent Insight Judgment: Poor Sleep: Insomnia (Due to care of new baby) Hallucinations: Denies Delusions: Denies Current Risk & History Current Dangerous Risk Assessm: Current Suicide Ideation, Ubable to Care for Self (Says she was only eating a granola bar a day for quite some time.) Past Dangerous Risk Assessm: Other (Says she has had suicidal thoughts before.) Previous Suicide Attempt: Past - Low Lethality (Acknowledges past suicidal thoughts.) Previous Psychiatric Illness: Yes (Says clinicians have hoped to have her have psychiatric hospitalization before, but she says she has never actually had a psychiatric hospitalization. ) Previous Diagnosis/Treatment: Patient says she saw a therapist weekly in [place] where she resided before coming to [place]. Previous Psychiatric Treatment: Yes Risk Assessment & Disposition Evaluated Risk Assessment: Risk is high, patient is overwhelmed with care of her child, and reports that she feels suicidal. Patient is upset that her daughter has cracked ribs, also reports that she feels very lonely and is a single parents with financial stresses. Patient's child has been taken into protective custody. Meets Mental Illness Req.: Yes Meets Dangerousness Req.: Yes Emergency Longterm to be: Upheld Decision Comment: Patient needs stabilization of mood, close monitoring for evaluation of needs, and greater outpatient support as well as transitional care. Date of Decision: Sep 20, 2018 Time of Decision: 20:18 Patient is Medically Stable at: Yes Disposition: [facility] Sep 15, 2018 20:19
[2018-09-15] MEDS: traZODone HCL 50 MG TAB PO SCH (21:00)
[2018-09-15] MEDS: hydrOXYzine PAMOATE 25 MG CAP PO SCH (21:00)
[2018-09-16 06:05] VITALS: BP 134/90
[2018-09-16] MEDS: MULTIVITAMINS PO SCH (08:54)
[2018-09-16] MEDS: ATENOLOL 25 MG TAB PO SCH (12:09)
[2018-09-16 14:02] VITALS: BP 125/82
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
[2018-09-16] MEDS: traZODone HCL 50 MG TAB PO SCH (20:10)
[2018-09-16] MEDS: hydrOXYzine PAMOATE 25 MG CAP PO SCH (20:10)
[2018-09-16 21:40] VITALS: BP 136/90
--- NOTE | 2018-09-16 23:00 | NUR ---
Note from [id number], Patient in room with mother at start of shift, visit pleasant per mother and patient statements. Mother left area without incident. Patient to provided urine sample. Denies any needs or concerns. Refused offered snack. Medications administered without incident. Patient read book in room until falling asleep without difficulties.
[2018-09-17 06:12] VITALS: BP 14/78
[2018-09-17 08:00] VITALS: BP 128/98
[2018-09-17] MEDS: ATENOLOL 25 MG TAB PO SCH (09:02)
[2018-09-17] MEDS: DULoxetine HCL 30 MG CAPCR PO SCH (09:02)
[2018-09-17] MEDS: MULTIVITAMINS PO SCH (09:02)
[2018-09-17] MEDS: TRIMETH/SULFA DS 160-800MG TAB PO SCH ×2 (09:02→20:42)
--- NOTE | 2018-09-17 13:43 | BHS Progress Note ---
BHS - Subjective Progress Notes Subjective Pt seen in treatment team with her estate planning attorney present. We also spoke briefly with the DFS worker assigned to the baby. Pt reports depressed mood, with continued suicidal ideation at 5/10, and continued homicidal ideation toward the baby at /10. She denies any psychotic symptoms. Slept well last night, is eating well. Repeat U/A shows evidence of UTI, and culture was sent and is pending. Will start bactrim at this time and check culture results. She is tolerating cymbalta well so far without side effects, and she felt the trazodone at hs was helpful-- denies oversedation this am. She tearfully expresses "I don't know if I'm the right person to raise my baby." Support given that this decision is a hard one and we will help her process her thoughts in whatever way we can. Also that treatment will focus on DBT and these DBT skills can actually help her with rational decision-making. Pt has waived her first hearing; there will be a senior living-care hearing for the baby this afternoon here on the unit that pt will attend. Suicidal Ideation: Ongoing Homicidal Ideation: Ongoing (towards her infant) [facility] - Objective Physical Exam Vital Signs Vital Signs 09/17/18 08:00 Temp 98.8 Pulse 68 Resp 18 B/P (MAP) 128/98 (108) Pulse Ox 97 O2 Delivery Room Air Muscle Strength and Tone: WNL Gait and Station: Steady [facility] Medications Reviewed: Side Effects, Benefits of Medication, Risks Allergies Reviewed: Yes Mental Status Exam General Appearance: Good Eye Contact, Cooperative, Polite, Tearful, Other (childish) Speech: Normal Volume (At times, patient speaks very loudly) Mood: Dysthmic/Depressed Affect: Calm, Sad, Anxious, Other (inappropriately bright and smiling when talking about difficult topics.) Thought Process: Loose Associations (Tangential at times.) Thought Content: Suicidal Ideation (Acknowledges that she is thinking about killing herself.), Homicidal Ideation (toward her baby); No Delusions, No Auditory Halllucinations, No Visual Hallucinations, No Thought Broadcasting, No Ideas of Reference, No Obsessions, No Compulsions, No Other Cognition: Alert & Oriented-Person, Alert & Oriented-Place, Alert & Oriented- Time; No Pbylh-Cwrdzldk-Vhyutjltx Memory: Immediate, Recent Intelligence: Average Insight Judgment: Poor Lab Hematology Test 09/17/18 00:00 Urine Color Yellow Urine Clarity Slightly-cloudy Urine pH 5.0 pH (4.8-9.5) Urine Specific Gile 1.024 Urine Protein Negative mg/dL (NEGATIVE) Urine Glucose (UA) Negative mg/dL (NEGATIVE) Urine Ketones Negative mg/dL (NEGATIVE) Urine Blood Negative (NEGATIVE) Urine Nitrite Negative (NEGATIVE) Urine Bilirubin Negative (NEGATIVE) Urine Urobilinogen Negative mg/dL (0.2-1.9) Urine Leukocyte Esterase Large (NEGATIVE) Urine RBC 3 /HPF (0-2/HPF) Urine WBC 26 /HPF (0-5/HPF) Urine Squamous Epithelial Cells Many /LPF (</=FEW) Urine Bacteria Negative /HPF (NONE-FEW) Urine Mucus Few /HPF (NONE-FEW) Chemistry Test 09/17/18 00:00 Urine Color Yellow Urine Clarity Slightly-cloudy Urine pH 5.0 pH (4.8-9.5) Urine Specific Gile 1.024 Urine Protein Negative mg/dL (NEGATIVE) Urine Glucose (UA) Negative mg/dL (NEGATIVE) Urine Ketones Negative mg/dL (NEGATIVE) Urine Blood Negative (NEGATIVE) Urine Nitrite Negative (NEGATIVE) Urine Bilirubin Negative (NEGATIVE) Urine Urobilinogen Negative mg/dL (0.2-1.9) Urine Leukocyte Esterase Large (NEGATIVE) Urine RBC 3 /HPF (0-2/HPF) Urine WBC 26 /HPF (0-5/HPF) Urine Squamous Epithelial Cells Many /LPF (</=FEW) Urine Bacteria Negative /HPF (NONE-FEW) Urine Mucus Few /HPF (NONE-FEW) Urinalysis Test 09/17/18 00:00 Urine Color Yellow Urine Clarity Slightly-cloudy Urine pH 5.0 pH (4.8-9.5) Urine Specific Gile 1.024 Urine Protein Negative mg/dL (NEGATIVE) Urine Glucose (UA) Negative mg/dL (NEGATIVE) Urine Ketones Negative mg/dL (NEGATIVE) Urine Blood Negative (NEGATIVE) Urine Nitrite Negative (NEGATIVE) Urine Bilirubin Negative (NEGATIVE) Urine Urobilinogen Negative mg/dL (0.2-1.9) Urine Leukocyte Esterase Large (NEGATIVE) Urine RBC 3 /HPF (0-2/HPF) Urine WBC 26 /HPF (0-5/HPF) Urine Squamous Epithelial Cells Many /LPF (</=FEW) Urine Bacteria Negative /HPF (NONE-FEW) Urine Mucus Few /HPF (NONE-FEW) [facility] Assessment and Plan [id number] Encounter Date: Sep 17, 2018 [id number] Encounter Time: 09:00 [facility] Plan: Necessary Precautions, Individual/Group Therapy, Admin/Titrate Meds, Educate Patient Tobacco Medications: Started Multpiple Antipsychotics Used: No Problems: (1) Depression affecting , (2) Borderline personality disorder ANANTH EPPS MD Sep 17, 2018 13:43
[2018-09-17] MEDS: hydrOXYzine PAMOATE 25 MG CAP PO SCH (20:42)
[2018-09-17] MEDS: traZODone HCL 50 MG TAB PO SCH (20:42)
--- NOTE | 2018-09-18 05:59 | NUR ---
Patient has slept well during night. Currently laying in bed with ou closed, respirations even and unlabored. No s/s of distress or discomfort noted.
[2018-09-18] MEDS: MULTIVITAMINS PO SCH (08:12)
[2018-09-18] MEDS: DULoxetine HCL 30 MG CAPCR PO SCH (08:12)
[2018-09-18] MEDS: TRIMETH/SULFA DS 160-800MG TAB PO SCH ×2 (08:12→22:05)
[2018-09-18] MEDS: ATENOLOL 25 MG TAB PO SCH (08:13)
--- NOTE | 2018-09-18 08:51 | Antimicrobial Stewardship ---
Antimicrobial Time Out Antimicrobial Stewardship MD Service: Other (Psychiatrist) Indications: UTI Antimicrobial Used Bactrim DS Start Date: Jul 17, 2019 Culture Results: N/A PAMELA MEDELLIN Sep 18, 2018 08:51
[2018-09-18 10:11] VITALS: BP 136/103
--- NOTE | 2018-09-18 10:12 | BHS Progress Note ---
S - Subjective Progress Notes Subjective "I feel conflicted. I'm not the most stable right now. Part of me is just letting Christina be adopted. I'm only 23 and don't really have my life together. I know what it's like growing up in poverty. I've been super stressed for a long time." Seen in treatment team with her credit card specialist present. Rating depression 6/10, anxiety 7/10. Last thoughts of hurting baby "Thursday or Thursday morning." Denies thoughts of harming self. Smiling and talking of option of placing child up for adoption. DFS worker assigned to the baby. Was started on Bactrim for UTI. Tolerating Cymbalta without side effects, and feels Trazodone helpful-- denies oversedation. Suicidal Ideation: None Homicidal Ideation: None S - Objective Physical Exam Deferred Medications (Trade) Dose Ordered Sig/Vianney Route PRN Reason Start Time Stop Time Status Last Admin Dose Admin Atenolol (Tenormin(*) 25 Mg Tab (Or Equiv)) 25 mg QDAY PO 09/16/18 11:00 10/16/18 10:59 09/18/18 08:13 Duloxetine HCl (Cymbalta 30 Mg Capcr (Or Equiv)) 30 mg QDAY PO 09/17/18 09:00 10/17/18 08:59 09/18/18 08:12 Hydroxyzine Pamoate (Vistaril(*) 25 Mg Cap (Or Equiv)) 50 mg QHS PO 09/15/18 21:00 10/15/18 20:59 09/17/18 20:42 Multivitamins (Thera-M Enhanced Tab (Or Equiv)) 1 each QDAY PO 09/16/18 09:00 10/16/18 08:59 09/18/18 08:12 Trazodone HCl (Desyrel 50 Mg Tab (Or Equiv)) 50 mg QHS PO 09/15/18 21:00 10/15/18 20:59 09/17/18 20:42 Trimethoprim/ Sulfamethoxazole (Bactrim(*) Ds 160/800 Mg Tab (Or Equiv)) 1 each BID PO 09/17/18 09:00 09/24/18 08:59 09/18/18 08:12 Muscle Strength and Tone: WNL Gait and Station: Steady [facility] Medications Reviewed: Side Effects, Benefits of Medication, Risks Allergies Reviewed: Yes Mental Status Exam General Appearance: Casual, Well Groomed, Good Eye Contact, Cooperative, Polite, Good Interaction; No Tearful; Other (childish) Speech: Clear, Spontaneous, Normal Rate, Normal Rhythm, Normal Volume Mood: Dysthmic/Depressed Affect: Full and Appropriate, Calm, Sad; No Anxious; Other Thought Process: Logical, Goal Directed; No Loose Associations (Tangential at times.) Thought Content: Suicidal Ideation (Acknowledges that she is thinking about killing herself.); No Homicidal Ideation (denies SI although later reports 11/03 ), No Delusions, No Auditory Halllucinations, No Visual Hallucinations, No Thought Broadcasting, No Ideas of Reference, No Obsessions, No Compulsions, No Other Cognition: Alert & Oriented-Person, Alert & Oriented-Place, Alert & Oriented- Time, Nklcb-Fxpbjfub-Irstxgnvo Memory: Immediate, Recent, Remote Intelligence: Average Insight Judgment: Poor Microbiology Medications (Trade) Dose Ordered Sig/Vianney Route PRN Reason Start Time Stop Time Status Last Admin Dose Admin Atenolol (Tenormin(*) 25 Mg Tab (Or Equiv)) 25 mg QDAY PO 09/16/18 11:00 10/16/18 10:59 09/18/18 08:13 Duloxetine HCl (Cymbalta 30 Mg Capcr (Or Equiv)) 30 mg QDAY PO 09/17/18 09:00 10/17/18 08:59 09/18/18 08:12 Hydroxyzine Pamoate (Vistaril(*) 25 Mg Cap (Or Equiv)) 50 mg QHS PO 09/15/18 21:00 10/15/18 20:59 09/17/18 20:42 Multivitamins (Thera-M Enhanced Tab (Or Equiv)) 1 each QDAY PO 09/16/18 09:00 10/16/18 08:59 09/18/18 08:12 Trazodone HCl (Desyrel 50 Mg Tab (Or Equiv)) 50 mg QHS PO 09/15/18 21:00 10/15/18 20:59 09/17/18 20:42 Trimethoprim/ Sulfamethoxazole (Bactrim(*) Ds 160/800 Mg Tab (Or Equiv)) 1 each BID PO 09/17/18 09:00 09/24/18 08:59 09/18/18 08:12 Imaging Laboratory Tests 09/17/18 00:00: Urine Color Yellow, Urine Clarity Slightly-cloudy, Urine pH 5.0, Urine Specific Fleming 1.024, Urine Protein Negative, Urine Glucose (UA) Negative, Urine Ketones Negative, Urine Blood Negative, Urine Nitrite Negative, Urine Bilirubin Negative, Urine Urobilinogen Negative, Urine Leukocyte Esterase Large, Urine RBC 3, Urine WBC 26, Urine Squamous Epithelial Cells Many, Urine Bacteria Negative, Urine Mucus Few S Assessment and Plan [id number] Encounter Date: Sep 18, 2018 [id number] Encounter Time: 10:08 S Plan: Necessary Precautions, Individual/Group Therapy, Admin/Titrate Meds, Educate Patient Tobacco Medications: Started Multpiple Antipsychotics Used: No Problems: (1) Depression affecting , Status: Acute (2) Borderline personality disorder Status: Chronic Condition Continue Cymbalta and Trazadone Maintain precautions Requesting assistance w/anger management JORDANA ZIEGLER NP Sep 18, 2018 10:12
[2018-09-18] MEDS: hydrOXYzine PAMOATE 25 MG CAP PO SCH (22:04)
[2018-09-18] MEDS: traZODone HCL 50 MG TAB PO SCH (22:05)
[2018-09-19] MEDS: ATENOLOL 25 MG TAB PO SCH (09:00)
[2018-09-19] MEDS: MULTIVITAMINS PO SCH (09:00)
[2018-09-19] MEDS: TRIMETH/SULFA DS 160-800MG TAB PO SCH ×2 (09:00→20:34)
[2018-09-19] MEDS: DULoxetine HCL 30 MG CAPCR PO SCH (09:00)
--- NOTE | 2018-09-19 13:09 | BHS Progress Note ---
BHS - Subjective Progress Notes Subjective "I'm good." She reports that she slept well. Depression is rated a 5, anxiety a 5. She denies SI. Suicidal Ideation: None Homicidal Ideation: None S - Objective Physical Exam Vital Signs Vital Signs Date Time Temp Pulse Resp B/P (MAP) Pulse Ox O2 Delivery O2 Flow Rate FiO2 09/18/18 10:11 98.4 83 16 136/103 (114) 92 Room Air Muscle Strength and Tone: WNL Gait and Station: Steady [facility] Medications Reviewed: Side Effects, Benefits of Medication, Risks Allergies Reviewed: Yes Mental Status Exam General Appearance: Casual, Well Groomed, Good Eye Contact, Cooperative, Polite, Good Interaction; No Tearful; Other (childish) Speech: Clear, Spontaneous, Normal Rate, Normal Rhythm, Normal Volume Mood: Dysthmic/Depressed Affect: Full and Appropriate, Calm, Sad; No Anxious; Other Thought Process: Logical, Goal Directed; No Loose Associations (Tangential at times.) Thought Content: Suicidal Ideation (Acknowledges that she is thinking about killing herself.); No Homicidal Ideation (denies SI although later reports 11/03 ), No Delusions, No Auditory Halllucinations, No Visual Hallucinations, No Thought Broadcasting, No Ideas of Reference, No Obsessions, No Compulsions, No Other Cognition: Alert & Oriented-Person, Alert & Oriented-Place, Alert & Oriented- Time, Dvvkg-Qzsqtadd-Itoedsgfo Memory: Immediate, Recent, Remote Intelligence: Average Insight Judgment: Poor S Assessment and Plan [id number] Encounter Date: Sep 19, 2018 [id number] Encounter Time: 09:30 [facility] Plan: Necessary Precautions, Individual/Group Therapy, Admin/Titrate Meds, Educate Patient Tobacco Medications: Started Multpiple Antipsychotics Used: No Problems: (1) Depression affecting , Status: Acute REINA RAE NP Sep 19, 2018 13:09
[2018-09-19 18:30] VITALS: BP 122/90
[2018-09-19] MEDS: traZODone HCL 50 MG TAB PO SCH (20:34)
[2018-09-19] MEDS: hydrOXYzine PAMOATE 25 MG CAP PO SCH (20:34)
[2018-09-20 06:37] VITALS: BP 132/86
[2018-09-20] MEDS: TRIMETH/SULFA DS 160-800MG TAB PO SCH ×2 (08:53→21:21)
[2018-09-20] MEDS: DULoxetine HCL 30 MG CAPCR PO SCH (08:53)
[2018-09-20] MEDS: ATENOLOL 25 MG TAB PO SCH (08:53)
[2018-09-20] MEDS: MULTIVITAMINS PO SCH (08:53)
[2018-09-20] MEDS ORDERED: traMADol 50 MG TAB PO PRN (11:30)
--- NOTE | 2018-09-20 18:42 | BHS Progress Note ---
S - Subjective Progress Notes Subjective Cymbalta 30 mgs daily Trazodone 50 mgs at hs I met with Michelle and her mother, Nina, this morning. She has a giggly affect initially, but then rates her mood as a "5" because of "the things I have to do today." Michelle has decided that she needs to relinquish her baby. She intends to discuss this with her restaurant culinary manager. She does not have any desire to harm her child now, but also does not feel that she is ready to be a parent for her. We talked about Michelle's prior mental health history and the fact that she has been diagnosed with borderline personality disorder. Her mother feels that she "is not getting better." I suggested that the overwhelmed what emotional resources and coping skills Michelle had developed and that if she no longer has to try to parent her baby, she can focus again on learning emotional regulation skills which is the core of treatment for BPD. Speech is fluent, spontaneous, and animated. Michelle has a small stuffed animal in the pocket of her scrubs this morning. Suicidal Ideation: None Homicidal Ideation: None BHS - Objective Physical Exam Muscle Strength and Tone: WNL Gait and Station: Steady [facility] Medications Reviewed: Side Effects, Benefits of Medication, Risks Allergies Reviewed: Yes Mental Status Exam General Appearance: Casual, Well Groomed, Good Eye Contact, Cooperative, Polite, Good Interaction; No Tearful; Other (childish) Speech: Clear, Spontaneous, Normal Rate, Normal Rhythm, Normal Volume Mood: Other (Rates mood as a five) Affect: Calm, Other (Variable from giggly to showing sadness and anxiety) Thought Process: Organized, Logical, Goal Directed; No Loose Associations (Tangential at times.) Thought Content: No Suicidal Ideation, No Homicidal Ideation (denies SI although later reports / ), No Delusions, No Auditory Halllucinations, No Visual Hallucinations, No Thought Broadcasting, No Ideas of Reference, No Obsessions, No Compulsions, No Other Sensorium: Clear Cognition: Alert & Oriented-Person, Alert & Oriented-Place, Alert & Oriented- Time, Soqxe-Bisxpgfj-Sykoyndvq Memory: Immediate, Recent, Remote Intelligence: Average [facility] Assessment and Plan Pdhd-gi-Geey Encounter Date: Sep 20, 2018 Mnyu-[id number] Encounter Time: 09:35 [facility] Plan: Necessary Precautions, Individual/Group Therapy, Admin/Titrate Meds, Educate Patient Tobacco Medications: Started Multpiple Antipsychotics Used: No Problems: (1) Borderline personality disorder Status: Chronic (2) Depression affecting , Status: Acute Assessment & Plan: Improving. Continue Cymbalta Condition 1. I anticipate that Michelle will have achieved what she can from hospitalization in a couple of days. She need to address her legal concerns and make a decision about the disposition of her child. We will provide her with support for her decision making. 2. I am adding a prn trazodone 50 mgs for sleep in addition to the 50 mgs routine 3. Continue duloxetine 30 mgs daily NICOLLE TAVERAS DO Sep 20, 2018 18:42
[2018-09-20] MEDS: traZODone HCL 50 MG TAB PO SCH (21:21)
[2018-09-20] MEDS: hydrOXYzine PAMOATE 25 MG CAP PO SCH (21:21)
[2018-09-21 06:16] VITALS: BP 109/78
--- NOTE | 2018-09-21 06:26 | BHS Progress Note ---
[facility] - Subjective Progress Notes Subjective Medications: Cymbalta 30 mgs and trazodone 50 mgs at night daily Michelle attempted to reach her litigation attorney yesterday but was unsuccessful. She active in groups yesterday and has been actively engaged in treatment. Her only complaint is that she was able to get to sleep easily last night but woke up during the night and could not get back to sleep. We agreed to try an increase in trazodone to 100 mgs at bedtime. Michelle's mood is improved (3/10 depression) and affect bubbly. She feels "calmer" today. Says she had "fleeting" thoughts of suicide yesterday, but nothing serious. She tells us that she is think more about her future. She wants to become more independent, move away from [place], and to work at [employer] where she has worked before. She continues to state that she thinks it is best that she relinquish custody of her daughter. We talked about how we can support her in doing what she needs to do in regard to communicating her wishes to DFS. Suicidal Ideation: None Homicidal Ideation: None [facility] - Objective Physical Exam Vital Signs 97.2, 75, 15, 109/78, 95 Muscle Strength and Tone: WNL Gait and Station: Steady [facility] Medications Reviewed: Side Effects, Benefits of Medication, Risks Allergies Reviewed: Yes Mental Status Exam General Appearance: Casual, Well Groomed, Good Eye Contact, Cooperative, Polite, Good Interaction; No Tearful Speech: Clear, Spontaneous, Normal Rate, Normal Rhythm, Normal Volume Mood: Other (Rates mood as a five) Affect: Calm, Other (Affect shows no signs of depression today) Thought Process: Organized, Logical, Goal Directed; No Loose Associations (Tangential at times.) Thought Content: No Suicidal Ideation, No Homicidal Ideation (denies SI although later reports 11/03 ), No Delusions, No Auditory Halllucinations, No Visual Hallucinations, No Thought Broadcasting, No Ideas of Reference, No Obsessions, No Compulsions, No Other Sensorium: Clear Cognition: Alert & Oriented-Person, Alert & Oriented-Place, Alert & Oriented- Time, Nagoj-Kccylirm-Zlpdalkyv Memory: Immediate, Recent, Remote Intelligence: Average [facility] Assessment and Plan Ekou-aq-Phzb Encounter Date: Sep 21, 2018 Wkkk-xq-Aixh Encounter Time: 09:46 [facility] Plan: Necessary Precautions, Individual/Group Therapy, Admin/Titrate Meds, Educate Patient Tobacco Medications: Started Multpiple Antipsychotics Used: No Problems: (1) Borderline personality disorder Status: Chronic (2) Depression affecting , Status: Acute Assessment & Plan: Improved mood Condition 1. Do a wellness recovery plan today 2. Increase trazodone to 100 mgs 3. Work on release plans including follow up DBT NICOLLE TAVERAS DO Sep 21, 2018 06:26
[2018-09-21] MEDS: ATENOLOL 25 MG TAB PO SCH (08:31)
[2018-09-21] MEDS: TRIMETH/SULFA DS 160-800MG TAB PO SCH ×2 (08:31→20:56)
[2018-09-21] MEDS: MULTIVITAMINS PO SCH (08:31)
[2018-09-21] MEDS: DULoxetine HCL 30 MG CAPCR PO SCH (08:31)
[2018-09-21] MEDS: hydrOXYzine PAMOATE 25 MG CAP PO SCH (20:56)
[2018-09-21] MEDS: traZODone HCL 50 MG TAB PO SCH (21:00)
[2018-09-21] MEDS ORDERED: traMADol 50 MG TAB PO SCH (22:00)
[2018-09-22 06:01] VITALS: BP 122/88
[2018-09-22] MEDS: ATENOLOL 25 MG TAB PO SCH (07:47)
[2018-09-22] MEDS: TRIMETH/SULFA DS 160-800MG TAB PO SCH (07:47)
[2018-09-22] MEDS: DULoxetine HCL 30 MG CAPCR PO SCH (07:47)
[2018-09-22] MEDS: MULTIVITAMINS PO SCH (07:47)
[2018-09-22] MEDS ORDERED: CITA20SO PO (15:48)
[2018-09-22] MEDS ORDERED: TRAZ100T31 PO (15:54)
[2018-09-22] MEDS ORDERED: DULO30CA35 PO ×2 (16:17→16:18)
[2018-09-22] MEDS ORDERED: traZODone HCL 50 MG TAB PO SCH (21:00)
--- NOTE | 2018-09-22 23:43 | DISCHARGE SUMMARY ---
DATE OF ADMISSION: September 15, 2018 DATE OF DISCHARGE: September 22, 2018 TYPE OF ADMISSION Involuntary. TYPE OF DISCHARGE Routine. ATTENDING PHYSICIAN Laura Rondon DO FINAL DIAGNOSES 1. Borderline personality disorder. 2. depression, resolved. REASON FOR ADMISSION Michelle Angulo was brought to our Emergency Room on a Title 25 hold after she began talking about wanting to kill herself. She had a baby about one month prior to admission, but over the following month since the of the baby, she had become progressively more depressed. She stated she was thinking about suicide almost every night for the two weeks prior to admission. She also admitted to homicidal thoughts including thoughts about suffocating the baby with a pillow. She stated, "She would cry and cry, and I couldn't get her to stop." The patient also stated that, "I was burping her, and I hit her a little too hard on Thursday." She also explained that the baby had been taken into protective custody by DFS. PHYSICAL EXAMINATION Please see emergency room records for complete physical examination. Vital signs at the time of admission were temperature 97.7, pulse 75, respirations 15, blood pressure 134/90, pulse ox 92% on room air. Vital signs at discharge: Temperature 98.0, pulse 81, respirations 15, blood pressure 122/88. LABORATORY DATA On 09/17/18, we obtained a followup UA which showed a large number of squamous epithelial cells, but no bacteria. Culture results were consistent with a contaminated specimen. MENTAL STATUS EXAMINATION I met with the patient at 8:40 on the day of discharge, 09/22/18. At this time, she is pleasant, well groomed, cooperative, and affirms that she feels ready to leave the hospital. She rates her anxiety as an 8/10, however, knowing that she is facing potential assisted time, but states that she is not depressed. She has not had any thoughts about suicide or homicide in quite some time. Her mood is positive, and affect is bright and consistent with expressed mood. Thought processes are entirely logical and goal directed. She is showing no signs of psychotic thought processes. She is oriented to all spheres, and memory immediate, recent, and long-term events is also intact. Michelle did become tearful at one point when she was informed that she would be probably be going to assisted after leaving the hospital; however, this was appropriate given her circumstances. RESULTS OF TESTING No additional diagnostics were ordered during this hospitalization. CONSULTATIONS None. TREATMENT We admitted Michelle to [facility] as an emergency jail, still experiencing suicidal ideation. She was placed on aggression and suicide precautions as well as elopement precautions. She attended individual and group therapy, and we continued her routine medications for blood pressure as well as Bactrim for a presumptive urinary tract infection and added trazodone 50 mg at bedtime for sleep. We ordered hydroxyzine 50 mg as needed at bedtime and then later trazodone 50 mg at bedtime. We also ordered Cymbalta 30 mg daily for treatment of depressive symptoms. HOSPITAL COURSE Michelle responded rapidly to the therapeutic milieu and treatment provided with resolution of depressive symptoms and suicidal thoughts. She seemed to enjoy groups and participated actively. She also was in communication with her tax associate attorney and with DFS regarding her legal troubles and the disposition of her child. During this hospitalization, Michelle informed us that she decided that she would relinquish custody of her child. She was actively working with her tax associate attorney to this end. Her mother also attended our treatment team meeting and was supporting Michelle in her decision and willing to help after she was released from the hospital. She is considered no longer a risk to herself or others at this time given her circumstances of relinquishing custody of her child. CONDITION OF PATIENT ON DISCHARGE On the day of discharge, Michelle was making reasonable plans and prepared to take the next step in addressing her legal difficulties and the disposition of her child. DISPOSITION Michelle was released to the custody of BrookeBERD and will be arraigned this afternoon. We also made arrangements for Michelle to be followed up at [facility] for DBT to help her master emotional regulation skills as well as for medication followup. OUTPATIENT MEDICATIONS 1. Trazodone 50 mg at bedtime. 2. Bactrim DS one b.i.d. x3 doses. 3. Cymbalta 30 mg daily. 4. Atenolol 25 mg daily. ADDENDUM Michelle had symptoms of a urinary tract infection upon admission. Clean catch urine was obtained, but culture results showed contaminated urine specimen. A UA on admission was cloudy with many squamous epithelial cells, also suggesting contamination. Negative for bacteria. [facility]
--- NOTE | 2018-09-23 03:14 | DISCHARGE SUMMARY ---
DATE OF ADMISSION: September 15, 2018 DATE OF DISCHARGE: September 22, 2018 TYPE OF ADMISSION Involuntary. TYPE OF DISCHARGE Routine. ATTENDING PHYSICIAN Laura Rondon DO FINAL DIAGNOSES 1. Borderline personality disorder. 2. depression, resolved. REASON FOR ADMISSION Michelle Angulo was brought to our emergency room on a Title 25 hold after she began talking about wanting to kill herself. She had a baby about one month prior to admission, but over the following month since the of the baby, she had become progressively more depressed. She stated she was thinking about suicide almost every night for the two weeks prior to admission. She also admitted to homicidal thoughts, including thoughts about suffocating the baby with a pillow. She stated, "She would cry and cry, and I couldn't get her to stop." The patient also stated that "I was burping her and I hit her a little too hard on Thursday." She also explained that the baby had been taken into protective custody by DFS. PHYSICAL EXAMINATION Please see emergency room records for complete physical examination. Vital signs at the time of admission were temperature 97.7, pulse 75, respirations 15, blood pressure 134/90, pulse ox 92% on room air. Vital signs at discharge: Temperature 98.0, pulse 81, respirations 15, blood pressure 122/88. LABORATORY DATA On 09/17/2018, we obtained a followup UA which showed a large number of squamous epithelial cells but no bacteria. Culture results were consistent with a contaminated specimen. MENTAL STATUS EXAMINATION I met with the patient at 0840 on the day of discharge, 09/22/2018. At this time, she is pleasant, well groomed, cooperative, and affirms that she feels ready to leave the hospital. She rates her anxiety as an 8 out of 10, however, knowing that she is facing potential detention time, but states that she is not depressed. She has not had any thoughts about suicide or homicide in quite some time. Her mood is positive and affect is bright and consistent with expressed mood. Thought processes are entirely logical and goal-directed. She is showing no signs of psychotic thought processes. She is oriented to all spheres, and memory for immediate, recent, and long-term events is also intact. Michelle did become tearful at one point when she was informed that she would probably be going to detention after leaving the hospital. However, this was appropriate given her circumstances. RESULTS OF TESTING No additional diagnostics were ordered during this hospitalization. CONSULTATIONS None. TREATMENT We admitted Michelle to [facility] as an emergency assisted, still experiencing suicidal ideation. She was placed on aggression and suicide precautions as well as elopement precautions. She attended individual and group therapy, and we continued her routine medications for blood pressure as well as Bactrim for a presumptive urinary tract infection, and added trazodone 50 mg at bedtime for sleep. We ordered hydroxyzine 50 mg as needed at bedtime and then later trazodone 50 mg at bedtime. We also ordered Cymbalta 30 mg daily for treatment of depressive symptoms. HOSPITAL COURSE Michelle responded rapidly to the therapeutic milieu and treatment provided with resolution of depressive symptoms and suicidal thoughts. She seemed to enjoy groups and participated actively. She also was in communication with her credit risk officer and with DSS regarding her legal troubles and the disposition of her child. During this hospitalization, Michelle informed us that she decided that she would relinquish custody of her daughter. CONDITION OF PATIENT ON DISCHARGE On the date of discharge, Michelle was making reasonable plans and was prepared to take the next step in addressing her legal difficulties and the disposition of her child. She was actively working with her credit risk officer to this end. Her mother also attended our treatment team meeting and was supporting Michelle in her decision and was willing to help after she was released from the hospital. She is considered no longer a risk to herself or others at this time, given her circumstances of relinquishing custody of her child. DISPOSITION Michelle was released to the custody of CeliaFIXO and will be arraigned this afternoon. Outpatient medications are as follows: 1. Trazodone 50 mg at bedtime. 2. Bactrim DS, one b.i.d. x3 doses. 3. Cymbalta 30 mg daily. 4. Atenolol 25 mg daily. We also made arrangements for Michelle to follow up at [facility] for DBT to help her master emotional regulation skills, as well as for medication followup. [facility]
== END 2018-09-22 18:00 | DRG 776 ==
LOC: BHS 18:41
PROVIDERS: ADMIT Psychiatry & Neurology Psychiatry; ATTEND Psychiatry & Neurology Psychiatry
DX: O99.345 Other mental disorders complicating the puerperium (principal); R45.851 Suicidal ideations; F53.0 Postpartum depression; F60.3 Borderline personality disorder; R45.850 Homicidal ideations; O9A Maternal malignant neoplasms, traumatic injuries and abuse classifiable elsewhere but complicating pregnancy, childbirth and the puerperium
CPT/HCPCS: 81001; 87088; Q0177